=== PATIENT | male | born 1950 | race Caucasian/White ===

== ENCOUNTER 2017-11-19 13:31 | Day surgery (SDC) | payer MEDICARE, BC ==
[2017-11-19] MEDS ORDERED: DEXAMETHASONE SOD PHOS PF 10 MG/ML SOL IJ ONE (14:10)
[2017-11-19] MEDS ORDERED: BUPIVACAINE HCL 0.25% MPF 10 ML SOL INFIL ONE (14:10)
[2017-11-19 14:55] VITALS: PULSE 56; RESP 18; TEMP 98.5; O2SAT 97
[2017-11-19 15:20] VITALS: BP 154/66
== END 2017-11-19 15:33 | disposition home or self-care (01) | DRG 552 ==
LOC: SURG 13:31
PROVIDERS: ATTEND Nurse Anesthetist, Certified Registered
DX: M48.07 Spinal stenosis, lumbosacral region (principal); E10.9 Type 1 diabetes mellitus without complications; Z79.4 Long term (current) use of insulin
CPT/HCPCS: 82962; J1100

== ENCOUNTER 2017-11-26 13:37 | Emergency (ER) | payer MEDICARE, BC ==
[2017-11-26 13:53] VITALS: TEMP 98.4
[2017-11-26 14:37] LABS: BASOPHILS % (AUTO) 1 % (0-3); EOSINOPHILS % (AUTO) 2 % (0-9); HEMATOCRIT 33 % (39-53); MEAN CORPUSCULAR HGB CONC 34.7 gm/dl (32.0-36.0); MEAN CORPUSCULAR VOLUME 82 fL (80-100); MONOCYTES % (AUTO) 14.7 % (0-12); NEUTROPHILS % (AUTO) 61.7 % (37-80)
[2017-11-26 14:41] LABS: ALBUMIN 3.3 gm/dl (3.4-5.0); CALCIUM 8.1 mg/dl (8.5-10.1); POTASSIUM 3.7 mMol/L (3.5-5.1)
[2017-11-26 15:49] VITALS: BP 127/64; PULSE 77; RESP 20; O2SAT 99
== END 2017-11-26 15:30 | disposition home or self-care (01) | DRG 103 ==
LOC: ED 13:37
DX: R51 Headache (principal); L03.116 Cellulitis of left lower limb; L84 Corns and callosities; Z91.81 History of falling; R23.4 Changes in skin texture; M25.562 Pain in left knee; M54.9 Dorsalgia, unspecified; R47.81 Slurred speech; L97.519 Non-pressure chronic ulcer of other part of right foot with unspecified severity
CPT/HCPCS: 36415; 70450; 80053; 85025; 99213; 99284; A6232

== ENCOUNTER 2018-03-23 15:32 | Emergency (ER) | payer MEDICARE, BC ==
[2018-03-23] MEDS ORDERED: SODIUM CHLORIDE 0.9% 1000ML 1,000 ML IV ONE ×4 (15:45→18:23)
[2018-03-23] MEDS ORDERED: ONDANSETRON HCL 4 MG/2 ML SOL IV ONE (16:07)
[2018-03-23] MEDS ORDERED: ONDANSETRON HCL 4 MG/2 ML SOL ONE (16:08)
[2018-03-23 16:14] LABS: BASOPHILS % (AUTO) 2 % (0-3); EOSINOPHILS % (AUTO) 0 % (0-9); HEMATOCRIT 33 % (39-53); HEMOGLOBIN 11.5 gm/dl (13.5-17.7); LYMPHOCYTES % (AUTO) 6.12 % (10-50); MEAN CORPUSCULAR HEMOGLOBIN 28.7 pg (27.0-32.0); MEAN CORPUSCULAR HGB CONC 35.2 gm/dl (32.0-36.0); MEAN CORPUSCULAR VOLUME 82 fL (80-100); MONOCYTES % (AUTO) 11.9 % (0-12)
[2018-03-23 16:36] LABS: ALBUMIN 3.8 gm/dl (3.4-5.0); ALKALINE PHOSPHATASE 122 IU/L (46-116); ALT 35 IU/L (14-63); AST 51 IU/L (15-37); BILIRUBIN,TOTAL 0.4 mg/dl (0.2-1.0); CALCIUM 8.5 mg/dl (8.5-10.1); CARBON DIOXIDE 19.6 mEq/L (21-32); CHLORIDE 88 mMol/L (98-107); CREATININE 5.62 mg/dl (0.80-1.30); GLOM FILT RATE 10 mL/min (>60); GLUCOSE 203 mg/dl (74-106); POTASSIUM 6.6 mMol/L (3.5-5.1); SODIUM 121 mMol/L (136-145); TOTAL PROTEIN 7.5 gm/dl (6.4-8.2); TROP I < 0.017 ng/ml (0.000-0.056)
[2018-03-23 16:46] LABS: ALCOHOL < 0.003 gm/dl (0.000-0.08)
[2018-03-23 16:47] LABS: BLOOD UREA NITROGEN 115 mg/dl (7-18)
[2018-03-23] MEDS ORDERED: DEXTROSE 50% 1 VIAL SOL IV ONE ×3 (16:50→17:22)
[2018-03-23] MEDS ORDERED: INSULIN HUMAN REGULAR 100 U/ML SOL IV ONE (16:50)
[2018-03-23 16:54] LABS: LACTIC ACID 1.7 mMol/L (0.0-2.0)
[2018-03-23] MEDS ORDERED: SODIUM BICARBONATE 8.4%(ADULT) 1 MEQ/ML SOL IV ONE ×3 (16:54→17:08)
[2018-03-23] MEDS ORDERED: CALCIUM GLUCONATE 10% 1,000 MG in SODIUM CHLORIDE 0.9% 100 ML 100 ML IV ONE (16:54)
[2018-03-23 16:55] LABS: INR 0.96 (0.86-1.12)
[2018-03-23] MEDS ORDERED: SODIUM POLYSTYRENE SULFONATE 15 GM/60 ML SUS PO ONE (16:55)
[2018-03-23] MEDS ORDERED: CALCIUM GLUCONATE 10% 100 MG/ML SOL IV ONE (17:05)
[2018-03-23] MEDS ORDERED: INSULIN HUMAN REGULAR 100 U/ML SOL ONE (17:06)
[2018-03-23] MEDS ORDERED: SODIUM POLYSTYRENE SULFONATE 15 GM/60 ML SUS ONE (17:13)
[2018-03-23] MEDS ORDERED: BACITRACIN 500 U/GM OIN TOP ONE ×2 (17:18→17:22)
[2018-03-23] MEDS ORDERED: SODIUM CHLORIDE 0.9% FLUSH 10 ML SOL IV PRN (17:21)
[2018-03-23 17:23] LABS: APPEARANCE,URINE Cloudy; BILIRUBIN,URINE 2+ (NEGATIVE); COLOR,URINE Yellow; GLUCOSE, URINE (UA) NEGATIVE (NEGATIVE); KETONES,URINE NEGATIVE (NEGATIVE); LEUKOCYTE ESTERASE ,URINE NEGATIVE (NEGATIVE); NITRATE,URINE NEGATIVE (NEGATIVE); OCCULT BLOOD,URINE NEGATIVE (NEG-TRACE); UROBILINOGEN,URINE 0.2 (0.2-1.0 EU)
[2018-03-23 17:41] LABS: BACTERIA 2+ (< 1+); CRYSTALS NEGATIVE (0-3 AVE/HPF); EPITHELIAL CELLS NEGATIVE (SQUAMOUS); RBC,URINE 0-1 (0-3AV/HPF); WBC,URINE 0-1 (0-5AV/HPF)
[2018-03-23 17:58] LABS: AMPHETAMINES POSITIVE (NEGATIVE); BARBITUATES NEGATIVE (NEGATIVE); BENZODIAZEPINES NEGATIVE (NEGATIVE); CANNABINOL(THC) NEGATIVE (NEGATIVE); COCAINE(COC) NEGATIVE (NEGATIVE); ICTOTEST,URINE NEGATIVE (NEGATIVE); METHADONE NEGATIVE (NEGATIVE); METHAMPHETAMINES NEGATIVE (NEGATIVE); OPIATES(OP13) POSITIVE (NEGATIVE); OXYCODONE(OXY) NEGATIVE (NEGATIVE); PROPOXYPHENE(PPX) NEGATIVE (NEGATIVE); TRICYCLIC ANTIDEPRESSANTS NEGATIVE (NEGATIVE)
[2018-03-23] MEDS ORDERED: METRONIDAZOLE 500 MG (PREMIX) 500 MG/100 ML SOL IV ONE ×2 (17:59→18:42)
[2018-03-23] MEDS ORDERED: LEVOFLOXACIN 25 MG/ML 750 MG in SODIUM CHLORIDE 0.9% 250 ML 150 ML IV ONE (17:59)
[2018-03-23] MEDS ORDERED: TDAP VACCINE 0.5 ML SUS IM ONE ×2 (18:00→18:15)
[2018-03-23] MEDS ORDERED: LEVOFLOXACIN 25 MG/ML SOL IV ONE (18:01)
[2018-03-23 19:08] VITALS: BP 111/46; PULSE 73; RESP 16; TEMP 97.5; O2SAT 100
== END 2018-03-23 19:24 | disposition short-term general hospital (02) | DRG 683 ==
LOC: ED 15:32
DX: N17.9 Acute kidney failure, unspecified (principal); E87.1 Hypo-osmolality and hyponatremia; R42 Dizziness and giddiness; E87.5 Hyperkalemia; K52.9 Noninfective gastroenteritis and colitis, unspecified; S09.8XXA Other specified injuries of head, initial encounter; R55 Syncope and collapse; I95.9 Hypotension, unspecified; S51.811A Laceration without foreign body of right forearm, initial encounter; E11.9 Type 2 diabetes mellitus without complications; Z79.4 Long term (current) use of insulin; R06.02 Shortness of breath
CPT/HCPCS: 36415; 70450; 71045; 72125; 74176; 80053; 80305; 80307; 81001; 82962; 84484; 85025; 85610; 87040; 87088; 90715; 93005; 99291; J0610; J1815; J1956; J2405; A9270-GY; J3490

== ENCOUNTER 2018-06-22 07:25 | Emergency (ER) | payer MEDICARE, BC ==
[2018-06-22] MEDS ORDERED: ONDANSETRON HCL 4 MG/2 ML SOL IV ONE (07:34)
[2018-06-22] MEDS ORDERED: ONDANSETRON HCL 4 MG/2 ML SOL ONE (07:35)
[2018-06-22] MEDS: SODIUM CHLORIDE 0.9% FLUSH 10 ML SOL IV PRN ×3 (07:40→11:30)
[2018-06-22 08:31] LABS: HEMATOCRIT 37 % (39-53); HEMOGLOBIN 12.2 gm/dl (13.5-17.7); MEAN CORPUSCULAR HGB CONC 33.4 gm/dl (32.0-36.0); MEAN CORPUSCULAR VOLUME 84 fL (80-100)
[2018-06-22 08:36] LABS: ALBUMIN 3.8 gm/dl (3.4-5.0); ALCOHOL < 0.003 gm/dl (0.000-0.08); ALKALINE PHOSPHATASE 127 IU/L (46-116); ALT 41 IU/L (14-63); AST 50 IU/L (15-37); BILIRUBIN,TOTAL 0.6 mg/dl (0.2-1.0); BLOOD UREA NITROGEN 97 mg/dl (7-18); CALCIUM 7.5 mg/dl (8.5-10.1); CARBON DIOXIDE 14.4 mEq/L (21-32); CHLORIDE 89 mMol/L (98-107); CREATININE 4.54 mg/dl (0.80-1.30); GLUCOSE 258 mg/dl (74-106); POTASSIUM 4.7 mMol/L (3.5-5.1); SODIUM 127 mMol/L (136-145); TOTAL PROTEIN 7.9 gm/dl (6.4-8.2)
[2018-06-22 08:48] LABS: BAND NEUTROPHILS % (MANUAL) 0 %; BASOPHILS % (MANUAL) 0 % (0-3); EOSINOPHILS % (MANUAL) 0 % (0-9); LYMPHOCYTES % (MANUAL) 4 % (10-50); MONOCYTES % (MANUAL) 9 % (0-12); NEUTROPHILS % (MANUAL) 87 % (37-80); NORMAL RBCS PRESENT
[2018-06-22 08:51] VITALS: RESP 26
[2018-06-22 08:57] LABS: APPEARANCE,URINE Clear; BILIRUBIN,URINE 2+ (NEGATIVE); COLOR,URINE Yellow; GLUCOSE, URINE (UA) NEGATIVE (NEGATIVE); KETONES,URINE TRACE (NEGATIVE); LEUKOCYTE ESTERASE ,URINE NEGATIVE (NEGATIVE); NITRATE,URINE NEGATIVE (NEGATIVE); OCCULT BLOOD,URINE TRACE LYSED (NEG-TRACE); UROBILINOGEN,URINE 0.2 (0.2-1.0 EU)
[2018-06-22 09:13] LABS: ICTOTEST,URINE NEGATIVE (NEGATIVE)
[2018-06-22 09:14] LABS: AMPHETAMINES NEGATIVE (NEGATIVE); BACTERIA 2+ (< 1+); BARBITUATES NEGATIVE (NEGATIVE); BENZODIAZEPINES NEGATIVE (NEGATIVE); CANNABINOL(THC) NEGATIVE (NEGATIVE); COCAINE(COC) NEGATIVE (NEGATIVE); CRYSTALS NEGATIVE (0-3 AVE/HPF); EPITHELIAL CELLS NEGATIVE (SQUAMOUS); METHADONE NEGATIVE (NEGATIVE); METHAMPHETAMINES NEGATIVE (NEGATIVE); OPIATES(OPI) NEGATIVE (NEGATIVE); OXYCODONE(OXY) NEGATIVE (NEGATIVE); PROPOXYPHENE(PPX) NEGATIVE (NEGATIVE); RBC,URINE NEGATIVE (0-3AV/HPF); TRICYCLIC ANTIDEPRESSANTS NEGATIVE (NEGATIVE); WBC,URINE 0-1 (0-5AV/HPF)
[2018-06-22 09:44] LABS: LACTIC ACID 1.6 mMol/L (0.0-2.0)
[2018-06-22] MEDS ORDERED: SODIUM CHLORIDE 0.9% 1000ML 1,000 ML IV ONE (09:48)
[2018-06-22 09:56] VITALS: TEMP 97.3; O2SAT 98
[2018-06-22] MEDS ORDERED: CEFTRIAXONE 1 GM PDS ONE (10:34)
[2018-06-22] MEDS ORDERED: CEFTRIAXONE 1 GM PDS 1 GM in SODIUM CHLORIDE 0.9% 50 ML 50 ML IV ONE (10:34)
[2018-06-22] MEDS ORDERED: LORAZEPAM 2 MG/ML SOL IV ONE ×2 (10:38→11:11)
[2018-06-22] MEDS ORDERED: LORAZEPAM 2 MG/ML SOL ONE ×2 (10:39→11:16)
[2018-06-22 11:24] VITALS: BP 131/58; PULSE 93
== END 2018-06-22 11:45 | disposition short-term general hospital (02) | DRG 683 ==
LOC: SUPCPDRO 07:25 → ED 07:25
DX: N17.9 Acute kidney failure, unspecified (principal); E87.1 Hypo-osmolality and hyponatremia; R41.82 Altered mental status, unspecified; D72.829 Elevated white blood cell count, unspecified; E11.8 Type 2 diabetes mellitus with unspecified complications; Z91.14 Patient's other noncompliance with medication regimen; L97.519 Non-pressure chronic ulcer of other part of right foot with unspecified severity; Z89.422 Acquired absence of other left toe(s); G24.9 Dystonia, unspecified
CPT/HCPCS: 36415; 71046; 80053; 80305; 80307; 81001; 85007; 85027; 87040; 87088; 96365; 96366; 96374; 96375; 99070; 99284; 99291; J0696; J2060; J2405

== ENCOUNTER 2018-08-24 14:00 | Emergency (ER) | payer MEDICARE, BC ==
[2018-08-24 14:03] VITALS: O2SAT 98
[2018-08-24 15:11] VITALS: BP 178/81; PULSE 85; RESP 18; TEMP 97.7
== END 2018-08-24 16:55 | disposition home or self-care (01) | DRG 556 ==
LOC: ED 14:00
DX: M25.511 Pain in right shoulder (principal); R07.89 Other chest pain; S09.90XA Unspecified injury of head, initial encounter
CPT/HCPCS: 70450; 71046; 73030; 99282; G0390

== ENCOUNTER 2018-12-17 12:25 | Emergency (ER) | payer MEDICARE, BC ==
[2018-12-17] MEDS ORDERED: NITROGLYCERIN 0.4 MG TAB SL PRN (12:30)
[2018-12-17] MEDS ORDERED: SODIUM CHLORIDE 0.9% FLUSH 10 ML SOL IV PRN (12:30)
[2018-12-17 12:39] LABS: BASOPHILS % (AUTO) 1 % (0-3); EOSINOPHILS % (AUTO) 0 % (0-9); HEMATOCRIT 41 % (39-53); HEMOGLOBIN 12.8 gm/dl (13.5-17.7); LYMPHOCYTES % (AUTO) 5.3 % (10-50); MEAN CORPUSCULAR HEMOGLOBIN 27.6 pg (27.0-32.0); MEAN CORPUSCULAR VOLUME 89 fL (80-100); MONOCYTES % (AUTO) 13.4 % (0-12); NEUTROPHILS % (AUTO) 80.8 % (37-80)
[2018-12-17] MEDS ORDERED: SODIUM CHLORIDE 0.9% 1000ML 1,000 ML IV ONE ×2 (12:40→13:53)
[2018-12-17] MEDS ORDERED: SODIUM CHLORIDE 0.9% 1000ML 1,000 ML IV SCH (12:45)
[2018-12-17] MEDS ORDERED: DILTIAZEM 5 MG/ML SOL IV ONE ×4 (12:50→14:31)
[2018-12-17 12:54] VITALS: TEMP 97.1
[2018-12-17 13:14] LABS: LACTIC ACID 2.1 mMol/L (0.0-2.0)
[2018-12-17 13:16] LABS: ALBUMIN 3.1 gm/dl (3.4-5.0); ALKALINE PHOSPHATASE 142 IU/L (46-116); ALT 33 IU/L (14-63); AST 48 IU/L (15-37); BILIRUBIN,TOTAL 0.6 mg/dl (0.2-1.0); BLOOD UREA NITROGEN 24 mg/dl (7-18); CHLORIDE 94 mMol/L (98-107); CREATININE 1.71 mg/dl (0.80-1.30); GLUCOSE 324 mg/dl (74-106); POTASSIUM 4.9 mMol/L (3.5-5.1); SODIUM 131 mMol/L (136-145); TROP I < 0.017 ng/ml (0.000-0.056)
[2018-12-17 13:20] LABS: CREATINE KINASE 1074 U/L (39-308)
[2018-12-17] MEDS ORDERED: DILTIAZEM 5 MG/ML 125 MG in SODIUM CHLORIDE 0.9% 100 ML 100 ML IV SCH (14:00)
[2018-12-17] MEDS ORDERED: SODIUM CHLORIDE 0.9% 1000 ML SOL IV SCH ×2 (14:45→16:00)
[2018-12-17 15:08] LABS: APPEARANCE,URINE Clear; BILIRUBIN,URINE 1+ (NEGATIVE); COLOR,URINE Yellow; GLUCOSE, URINE (UA) 2+ (NEGATIVE); KETONES,URINE 4+ (NEGATIVE); LEUKOCYTE ESTERASE ,URINE NEGATIVE (NEGATIVE); NITRATE,URINE NEGATIVE (NEGATIVE); OCCULT BLOOD,URINE 2+ (NEG-TRACE); PH,URINE 5.5; UROBILINOGEN,URINE 0.2 (0.2-1.0 EU)
[2018-12-17 15:15] VITALS: RESP 20
[2018-12-17 15:24] LABS: BACTERIA TRACE (< 1+); CRYSTALS NEGATIVE (0-3 AVE/HPF); EPITHELIAL CELLS 0-2 (SQUAMOUS); ICTOTEST,URINE NEGATIVE (NEGATIVE)
[2018-12-17 16:40] VITALS: PULSE 137
[2018-12-17 16:41] VITALS: BP 125/67; O2SAT 100
== END 2018-12-17 16:07 | disposition short-term general hospital (02) | DRG 310 ==
LOC: ED 12:25
DX: I48.2 Chronic atrial fibrillation (principal); T79.6XXA Traumatic ischemia of muscle, initial encounter; E86.0 Dehydration; S82.851A Displaced trimalleolar fracture of right lower leg, initial encounter for closed fracture; W19.XXXA Unspecified fall, initial encounter; I10 Essential (primary) hypertension; E11.9 Type 2 diabetes mellitus without complications
CPT/HCPCS: 29515; 71045; 73610; 80053; 81001; 82550; 84484; 85025; 93005; 96365; 96366; 96374; 99283; 99285; J3490

== ENCOUNTER 2019-02-19 12:46 | Inpatient (IN) | payer MEDICARE, BC ==
[2019-02-19] MEDS ORDERED: ALBUTEROL NEB SOL 2.5MG/3ML 1 VIAL SOL NEB PRN (15:32)
[2019-02-19] MEDS ORDERED: SODIUM CHLORIDE 0.9% FLUSH 10 ML SOL IV PRN (15:32)
[2019-02-19] MEDS ORDERED: SODIUM CHLORIDE 0.9% 1000ML 1,000 ML IV ONE (15:32)
[2019-02-19] MEDS ORDERED: SODIUM CHLORIDE 0.9% 100 ML 100 ML IV ONE ×3 (16:30→19:54)
[2019-02-19] MEDS ORDERED: PIPERACILLIN/TAZOBACT 3.375 GM PDS IV ONE ×3 (16:30→19:54)
[2019-02-19] MEDS: AZITHROMYCIN 250 MG TAB PO SCH (17:48)
[2019-02-19] MEDS: ALBUTEROL/IPRATROPIUM 1 VIAL SOL INH SCH (17:49)
[2019-02-19] MEDS: PIPERACILLIN/TAZOBACT 3.375 GM 3.375 GM in SODIUM CHLORIDE 0.9% 100 ML 100 ML IV SCH (18:21)
[2019-02-19] MEDS ORDERED: INDOMETHACIN 25 MG PO PRN (20:02)
[2019-02-19] MEDS ORDERED: METOPROLOL TARTRATE 25 MG TAB PO SCH (21:00)
[2019-02-19] MEDS: INSULIN GLARGINE, RECOMBINAN 100 U/ML SOL SC SCH (22:26)
[2019-02-19] MEDS: PREGABALIN 100 MG CAP PO SCH (22:39)
[2019-02-20] MEDS: PIPERACILLIN/TAZOBACT 3.375 GM 3.375 GM in SODIUM CHLORIDE 0.9% 100 ML 100 ML IV SCH ×4 (00:51→18:29)
[2019-02-20] MEDS: ALBUTEROL/IPRATROPIUM 1 VIAL SOL INH SCH ×4 (00:52→18:29)
[2019-02-20] MEDS: SODIUM CHLORIDE 0.9% FLUSH 10 ML SOL IV SCH ×3 (00:55→17:17)
[2019-02-20] MEDS ORDERED: HYDRALAZINE HYDROCHLORIDE 20 MG/ML SOL IV ONE (04:25)
[2019-02-20] MEDS ORDERED: HYDRALAZINE HYDROCHLORIDE 20 MG/ML SOL IV PRN (06:06)
[2019-02-20 08:10] LABS: BASOPHILS % (AUTO) 1 % (0-3); EOSINOPHILS % (AUTO) 4 % (0-9); HEMATOCRIT 35 % (39-53); HEMOGLOBIN 11.3 gm/dl (13.5-17.7); LYMPHOCYTES % (AUTO) 9.9 % (10-50); MEAN CORPUSCULAR HEMOGLOBIN 28.1 pg (27.0-32.0); MEAN CORPUSCULAR HGB CONC 32.2 gm/dl (32.0-36.0); MEAN CORPUSCULAR VOLUME 87 fL (80-100); MONOCYTES % (AUTO) 12.8 % (0-12); NEUTROPHILS % (AUTO) 72.2 % (37-80)
[2019-02-20 08:22] LABS: CALCIUM 8.5 mg/dl (8.5-10.1); CARBON DIOXIDE 23.6 mEq/L (21-32); CREATININE 1.11 mg/dl (0.80-1.30); POTASSIUM 3.3 mMol/L (3.5-5.1)
[2019-02-20] MEDS: METOPROLOL TARTRATE 50 MG TAB PO SCH ×2 (09:42→20:09)
[2019-02-20] MEDS: POTASSIUM CHLORIDE 10 MEQ TER PO SCH ×2 (09:42→20:09)
[2019-02-20] MEDS: AZITHROMYCIN 250 MG TAB PO SCH (09:42)
[2019-02-20] MEDS: CITALOPRAM 20 MG TAB PO SCH (09:42)
[2019-02-20] MEDS: ASPIRIN 81 MG CHEWABLE CTB PO SCH (09:42)
[2019-02-20] MEDS: PREGABALIN 100 MG CAP PO SCH ×3 (09:43→20:09)
[2019-02-20] MEDS: [UNRECOGNIZED DRUG - OTHER] PO SCH (09:43)
[2019-02-20] MEDS: NOVOLOG FLEXPEN SC SCH ×3 (09:44→17:17)
[2019-02-20] MEDS: ENOXAPARIN 40 MG SOL SC SCH (09:48)
[2019-02-20] MEDS ORDERED: PIPERACILLIN/TAZOBACT 3.375 GM PDS IV ONE ×2 (13:14→17:28)
[2019-02-20] MEDS ORDERED: SODIUM CHLORIDE 0.9% 100 ML 100 ML IV ONE (13:14)
[2019-02-20] MEDS: INSULIN GLARGINE, RECOMBINAN 100 U/ML SOL SC SCH (21:35)
[2019-02-21] MEDS: PIPERACILLIN/TAZOBACT 3.375 GM 3.375 GM in SODIUM CHLORIDE 0.9% 100 ML 100 ML IV SCH ×4 (00:30→17:18)
[2019-02-21] MEDS: ALBUTEROL/IPRATROPIUM 1 VIAL SOL INH SCH ×4 (00:31→17:04)
[2019-02-21] MEDS: SODIUM CHLORIDE 0.9% FLUSH 10 ML SOL IV SCH ×4 (06:42→21:47)
[2019-02-21 07:36] LABS: CALCIUM 8.5 mg/dl (8.5-10.1); CARBON DIOXIDE 23.7 mEq/L (21-32); CREATININE 1.15 mg/dl (0.80-1.30); POTASSIUM 3.9 mMol/L (3.5-5.1)
[2019-02-21] MEDS: [UNRECOGNIZED DRUG - OTHER] PO SCH (09:13)
[2019-02-21] MEDS: METOPROLOL TARTRATE 50 MG TAB PO SCH ×2 (09:13→21:45)
[2019-02-21] MEDS: TRIAMCINOLONE 0.1% CREAM CRE TOP SCH ×2 (09:13→21:44)
[2019-02-21] MEDS: POTASSIUM CHLORIDE 10 MEQ TER PO SCH ×2 (09:13→21:45)
[2019-02-21] MEDS: CITALOPRAM 20 MG TAB PO SCH (09:13)
[2019-02-21] MEDS: ASPIRIN 81 MG CHEWABLE CTB PO SCH (09:13)
[2019-02-21] MEDS: PREGABALIN 100 MG CAP PO SCH ×3 (09:14→21:45)
[2019-02-21] MEDS: NOVOLOG FLEXPEN SC SCH ×3 (09:17→17:09)
[2019-02-21] MEDS: AMLODIPINE 5 MG TAB PO SCH (09:18)
[2019-02-21] MEDS: ENOXAPARIN 40 MG SOL SC SCH (09:19)
[2019-02-21] MEDS: AZITHROMYCIN 250 MG TAB PO SCH (09:23)
[2019-02-21] MEDS: INSULIN GLARGINE, RECOMBINAN 100 U/ML SOL SC SCH (21:45)
[2019-02-22] MEDS: PIPERACILLIN/TAZOBACT 3.375 GM 3.375 GM in SODIUM CHLORIDE 0.9% 100 ML 100 ML IV SCH ×2 (00:09→05:56)
[2019-02-22] MEDS: SODIUM CHLORIDE 0.9% FLUSH 10 ML SOL IV SCH ×3 (00:09→17:10)
[2019-02-22] MEDS: ALBUTEROL/IPRATROPIUM 1 VIAL SOL INH SCH ×4 (00:11→17:54)
[2019-02-22 07:22] LABS: CALCIUM 8.9 mg/dl (8.5-10.1); CARBON DIOXIDE 23.7 mEq/L (21-32); CREATININE 1.25 mg/dl (0.80-1.30); POTASSIUM 4.1 mMol/L (3.5-5.1)
[2019-02-22] MEDS ORDERED: LEVOFLOXACIN 500 MG TAB PO SCH (09:00)
[2019-02-22] MEDS: NOVOLOG FLEXPEN SC SCH ×3 (09:14→17:50)
[2019-02-22] MEDS: PREGABALIN 100 MG CAP PO SCH ×3 (09:15→21:16)
[2019-02-22] MEDS: [UNRECOGNIZED DRUG - OTHER] PO SCH (09:16)
[2019-02-22] MEDS: POTASSIUM CHLORIDE 10 MEQ TER PO SCH ×2 (09:17→21:16)
[2019-02-22] MEDS: AMLODIPINE 5 MG TAB PO SCH (09:18)
[2019-02-22] MEDS: CITALOPRAM 20 MG TAB PO SCH (09:18)
[2019-02-22] MEDS: ASPIRIN 81 MG CHEWABLE CTB PO SCH (09:19)
[2019-02-22] MEDS: TRIAMCINOLONE 0.1% CREAM CRE TOP SCH ×2 (09:19→21:16)
[2019-02-22] MEDS: METOPROLOL TARTRATE 50 MG TAB PO SCH ×2 (09:19→21:16)
[2019-02-22] MEDS: ENOXAPARIN 40 MG SOL SC SCH (09:23)
[2019-02-22] MEDS ORDERED: AMLODIPINE 5 MG TAB PO ONE (16:05)
[2019-02-22] MEDS: INSULIN GLARGINE, RECOMBINAN 100 U/ML SOL SC SCH (21:29)
[2019-02-23] MEDS: ALBUTEROL/IPRATROPIUM 1 VIAL SOL INH SCH ×5 (00:05→23:20)
[2019-02-23 08:53] LABS: CALCIUM 8.9 mg/dl (8.5-10.1); CARBON DIOXIDE 24.8 mEq/L (21-32); CREATININE 1.13 mg/dl (0.80-1.30); POTASSIUM 4.1 mMol/L (3.5-5.1)
[2019-02-23] MEDS ORDERED: CLONIDINE 0.1 MG TAB PO SCH (09:00)
[2019-02-23] MEDS ORDERED: LISINOPRIL 5 MG TAB PO SCH (09:00)
[2019-02-23] MEDS: PREGABALIN 100 MG CAP PO SCH ×3 (09:17→21:03)
[2019-02-23] MEDS: [UNRECOGNIZED DRUG - OTHER] PO SCH (09:19)
[2019-02-23] MEDS: TRIAMCINOLONE 0.1% CREAM CRE TOP SCH ×2 (09:21→21:02)
[2019-02-23] MEDS: ASPIRIN 81 MG CHEWABLE CTB PO SCH (09:21)
[2019-02-23] MEDS: ENOXAPARIN 40 MG SOL SC SCH (09:21)
[2019-02-23] MEDS: METOPROLOL TARTRATE 50 MG TAB PO SCH ×2 (09:21→21:02)
[2019-02-23] MEDS: AMLODIPINE 5 MG TAB PO SCH (09:22)
[2019-02-23] MEDS: CITALOPRAM 20 MG TAB PO SCH (09:22)
[2019-02-23] MEDS: POTASSIUM CHLORIDE 10 MEQ TER PO SCH ×2 (09:22→21:02)
[2019-02-23] MEDS: AZITHROMYCIN 250 MG TAB PO SCH (09:23)
[2019-02-23] MEDS: NOVOLOG FLEXPEN SC SCH ×3 (09:23→18:17)
[2019-02-23] MEDS: CEFDINIR 300 MG CAP PO SCH ×2 (10:36→21:08)
[2019-02-23] MEDS ORDERED: HYDRALAZINE HYDROCHLORIDE 10 MG TAB PO ONE (15:05)
[2019-02-23] MEDS: CLONIDINE 0.1 MG TAB PO SCH (21:08)
[2019-02-23] MEDS: INSULIN GLARGINE, RECOMBINAN 100 U/ML SOL SC SCH (21:09)
[2019-02-24] MEDS: ALBUTEROL/IPRATROPIUM 1 VIAL SOL INH SCH ×2 (06:14→11:41)
[2019-02-24] MEDS: METOPROLOL TARTRATE 50 MG TAB PO SCH (08:00)
[2019-02-24] MEDS: [UNRECOGNIZED DRUG - OTHER] PO SCH (08:00)
[2019-02-24] MEDS: ASPIRIN 81 MG CHEWABLE CTB PO SCH (08:02)
[2019-02-24] MEDS: CLONIDINE 0.1 MG TAB PO SCH (08:02)
[2019-02-24] MEDS: CITALOPRAM 20 MG TAB PO SCH (08:02)
[2019-02-24] MEDS: POTASSIUM CHLORIDE 10 MEQ TER PO SCH (08:03)
[2019-02-24] MEDS: TRIAMCINOLONE 0.1% CREAM CRE TOP SCH (08:03)
[2019-02-24] MEDS: AMLODIPINE 5 MG TAB PO SCH (08:04)
[2019-02-24] MEDS: AZITHROMYCIN 250 MG TAB PO SCH (08:05)
[2019-02-24] MEDS: PREGABALIN 100 MG CAP PO SCH (08:05)
[2019-02-24] MEDS: NOVOLOG FLEXPEN SC SCH ×2 (08:07→11:52)
[2019-02-24] MEDS: CEFDINIR 300 MG CAP PO SCH (08:07)
[2019-02-24] MEDS: ENOXAPARIN 40 MG SOL SC SCH (08:11)
[2019-02-24] MEDS ORDERED: CLONIDINE 0.1 MG TAB PO ONE (08:36)
[2019-02-24 08:39] LABS: BASOPHILS % (AUTO) 2 % (0-3); EOSINOPHILS % (AUTO) 7 % (0-9); HEMATOCRIT 38 % (39-53); HEMOGLOBIN 11.9 gm/dl (13.5-17.7); LYMPHOCYTES % (AUTO) 15.5 % (10-50); MEAN CORPUSCULAR HEMOGLOBIN 27.5 pg (27.0-32.0); MEAN CORPUSCULAR HGB CONC 31.6 gm/dl (32.0-36.0); MEAN CORPUSCULAR VOLUME 87 fL (80-100); MONOCYTES % (AUTO) 11.1 % (0-12); NEUTROPHILS % (AUTO) 64.5 % (37-80)
[2019-02-24 08:57] LABS: CALCIUM 8.7 mg/dl (8.5-10.1); CARBON DIOXIDE 24.9 mEq/L (21-32); CREATININE 1.22 mg/dl (0.80-1.30)
[2019-02-24 10:16] VITALS: BP 113/67; TEMP 98.3
[2019-02-24 11:43] VITALS: PULSE 64; O2SAT 98
[2019-02-24 11:52] VITALS: RESP 20
[2019-02-24] MEDS ORDERED: CLONIDINE 0.1 MG TAB PO SCH (21:00)
== END 2019-02-24 14:10 | disposition home or self-care (01) | DRG 195 ==
LOC: RAD 12:46 → ACUTE CARE 15:15
PROVIDERS: ADMIT Family Medicine; ATTEND Family Medicine
PROC: F01L0FZ Muscle Performance Assessment of Musculoskeletal System - Lower Back / Lower Extremity using Assistive, Adaptive, Supportive or Protective Equipment (ICD-10-PCS; principal; 2019-02-20)
PROC: F01L5YZ Range of Motion and Joint Integrity Assessment of Musculoskeletal System - Lower Back / Lower Extremity using Other Equipment (ICD-10-PCS; 2019-02-20)
PROC: F01K5ZZ Range of Motion and Joint Integrity Assessment of Musculoskeletal System - Upper Back / Upper Extremity (ICD-10-PCS; 2019-02-20)
DX: J18.1 Lobar pneumonia, unspecified organism (principal); R06.02 Shortness of breath; J94.8 Other specified pleural conditions; J98.11 Atelectasis; R07.9 Chest pain, unspecified; I25.10 Atherosclerotic heart disease of native coronary artery without angina pectoris; E11.42 Type 2 diabetes mellitus with diabetic polyneuropathy; Z79.4 Long term (current) use of insulin; I10 Essential (primary) hypertension; E87.6 Hypokalemia; I87.301 Chronic venous hypertension (idiopathic) without complications of right lower extremity
CPT/HCPCS: 36415; 71275; 80048; 82962; 85025; 87040; 94150; 94640; 94664; 94762; 99070; J0360; J1650; J1817; J2543; J7613; Q9967; A9270-GY; J1815

== ENCOUNTER 2019-04-21 14:19 | Inpatient (IN) | payer MEDICARE, BC ==
[2019-04-21] MEDS ORDERED: MORPHINE SULFATE 10 MG/ML SOL IV PRN ×2 (14:44)
[2019-04-21] MEDS ORDERED: NITROGLYCERIN 0.4 MG TAB SL PRN (14:44)
[2019-04-21] MEDS ORDERED: ALUMINUM/MAGNESIUM 30 ML SUS PO PRN (14:44)
[2019-04-21] MEDS ORDERED: HYDRALAZINE HYDROCHLORIDE 20 MG/ML SOL IV ONE ×2 (14:49→18:17)
[2019-04-21 16:31] LABS: INR 1.05 (0.87-1.13)
[2019-04-21] MEDS: SODIUM CHLORIDE 0.9% FLUSH 10 ML SOL IV SCH ×3 (16:37→22:21)
[2019-04-21] MEDS ORDERED: SODIUM CHLORIDE 0.9% 50 ML 25 ML IV PRN (17:53)
[2019-04-21] MEDS ORDERED: HYDRALAZINE HYDROCHLORIDE 10 MG TAB PO ONE (18:08)
[2019-04-21] MEDS ORDERED: FUROSEMIDE 40 MG SOL IV ONE (18:14)
[2019-04-21] MEDS ORDERED: ONDANSETRON 4 MG ODT ONE (18:16)
[2019-04-21] MEDS: ONDANSETRON 4 MG ODT BU PRN (18:18)
[2019-04-21] MEDS: CLONIDINE 0.1 MG TAB PO SCH ×2 (18:21→20:17)
[2019-04-21] MEDS: NOVOLOG FLEXPEN SC SCH (18:49)
[2019-04-21] MEDS ORDERED: CEFTRIAXONE 1 GM PDS ONE (18:53)
[2019-04-21] MEDS ORDERED: SODIUM CHLORIDE 0.9% 50 ML 50 ML IV ONE (18:53)
[2019-04-21] MEDS ORDERED: ENOXAPARIN 40 MG SOL SC SCH (19:00)
[2019-04-21] MEDS: CEFTRIAXONE 1 GM PDS 1 GM in SODIUM CHLORIDE 0.9% 50 ML 50 ML IV SCH (19:00)
[2019-04-21] MEDS: ENOXAPARIN 40 MG SOL SC SCH (19:06)
[2019-04-21] MEDS: METOPROLOL TARTRATE 50 MG TAB PO SCH (20:18)
[2019-04-21] MEDS: AZITHROMYCIN 250 MG TAB PO SCH (20:18)
[2019-04-21] MEDS: ACETAMINOPHEN 325 MG PO PRN (20:18)
[2019-04-21] MEDS: INSULIN GLARGINE, RECOMBINAN 100 U/ML SOL SC SCH (20:18)
[2019-04-21] MEDS ORDERED: FUROSEMIDE 40 MG SOL IV SCH (21:00)
[2019-04-21] MEDS: INDOMETHACIN 25 MG PO SCH (22:10)
[2019-04-22] MEDS ORDERED: CEFTRIAXONE 1 GM PDS ONE ×2 (06:20→18:20)
[2019-04-22] MEDS ORDERED: SODIUM CHLORIDE 0.9% 50 ML 50 ML IV ONE ×2 (06:20→18:22)
[2019-04-22] MEDS: CEFTRIAXONE 1 GM PDS 1 GM in SODIUM CHLORIDE 0.9% 50 ML 50 ML IV SCH ×2 (06:31→18:25)
[2019-04-22] MEDS: SODIUM CHLORIDE 0.9% FLUSH 10 ML SOL IV SCH ×4 (06:31→23:09)
[2019-04-22] MEDS: ONDANSETRON 4 MG ODT BU PRN (06:40)
[2019-04-22] MEDS: ACETAMINOPHEN 325 MG PO PRN ×2 (06:40→09:44)
[2019-04-22 08:02] LABS: BLOOD UREA NITROGEN 15 mg/dl (7-18); CALCIUM 8.9 mg/dl (8.5-10.1); CARBON DIOXIDE 29.6 mEq/L (21-32); CHLORIDE 103 mMol/L (98-107); CREATININE 1.23 mg/dl (0.80-1.30); GLUCOSE 104 mg/dl (74-106); TROP I < 0.017 ng/ml (0.000-0.056)
[2019-04-22 08:14] LABS: BASOPHILS % (AUTO) 1 % (0-3); EOSINOPHILS % (AUTO) 3 % (0-9); HEMATOCRIT 40 % (39-53); HEMOGLOBIN 12.3 gm/dl (13.5-17.7); LYMPHOCYTES % (AUTO) 16.2 % (10-50); MEAN CORPUSCULAR HEMOGLOBIN 28.4 pg (27.0-32.0); MEAN CORPUSCULAR HGB CONC 30.9 gm/dl (32.0-36.0); MEAN CORPUSCULAR VOLUME 92 fL (80-100); MONOCYTES % (AUTO) 9.7 % (0-12); NEUTROPHILS % (AUTO) 70.3 % (37-80)
[2019-04-22] MEDS ORDERED: [UNRECOGNIZED DRUG - OTHER] PO SCH (09:00)
[2019-04-22] MEDS ORDERED: ENOXAPARIN 40 MG SOL SC SCH (09:00)
[2019-04-22] MEDS: INDOMETHACIN 25 MG PO SCH ×3 (09:15→21:33)
[2019-04-22] MEDS: NOVOLOG FLEXPEN SC SCH ×3 (09:25→18:19)
[2019-04-22] MEDS: METOPROLOL TARTRATE 50 MG TAB PO SCH ×2 (09:40→21:33)
[2019-04-22] MEDS: LOSARTAN POTASSIUM 50 MG TAB PO SCH (09:43)
[2019-04-22] MEDS: CLONIDINE 0.1 MG TAB PO SCH ×2 (09:43→21:32)
[2019-04-22] MEDS: ASPIRIN EC 81 MG PO SCH (09:43)
[2019-04-22] MEDS: MULTIVITAMIN2 1 EA TAB PO SCH (09:44)
[2019-04-22] MEDS: AMLODIPINE 5 MG TAB PO SCH (09:44)
[2019-04-22] MEDS: CITALOPRAM 20 MG TAB PO SCH (09:44)
[2019-04-22] MEDS ORDERED: SOLUMEDROL 125 MG/2 ML 125 MG/2 ML PDS IV SCH (14:15)
[2019-04-22] MEDS ORDERED: ALBUTEROL NEB SOL 2.5MG/3ML 1 VIAL SOL NEB PRN (20:50)
[2019-04-22] MEDS: SOLUMEDROL 125 MG/2 ML 125 MG/2 ML PDS IV SCH (21:28)
[2019-04-22] MEDS: ENOXAPARIN 40 MG SOL SC SCH (21:34)
[2019-04-22] MEDS: AZITHROMYCIN 250 MG TAB PO SCH (21:34)
[2019-04-22] MEDS: INSULIN GLARGINE, RECOMBINAN 100 U/ML SOL SC SCH (21:35)
[2019-04-23] MEDS: SOLUMEDROL 125 MG/2 ML 125 MG/2 ML PDS IV SCH ×3 (01:36→18:17)
[2019-04-23] MEDS ORDERED: CEFTRIAXONE 1 GM PDS ONE (05:59)
[2019-04-23] MEDS ORDERED: SODIUM CHLORIDE 0.9% 50 ML 50 ML IV ONE (06:00)
[2019-04-23] MEDS: CEFTRIAXONE 1 GM PDS 1 GM in SODIUM CHLORIDE 0.9% 50 ML 50 ML IV SCH ×2 (06:13→18:17)
[2019-04-23] MEDS: SODIUM CHLORIDE 0.9% FLUSH 10 ML SOL IV SCH ×2 (06:14→16:57)
[2019-04-23] MEDS: NOVOLOG FLEXPEN SC SCH ×6 (08:11→21:04)
[2019-04-23] MEDS: MULTIVITAMIN2 1 EA TAB PO SCH (08:25)
[2019-04-23] MEDS: INDOMETHACIN 25 MG PO SCH ×3 (08:25→20:10)
[2019-04-23] MEDS: LOSARTAN POTASSIUM 50 MG TAB PO SCH (08:26)
[2019-04-23] MEDS: ASPIRIN EC 81 MG PO SCH (08:26)
[2019-04-23] MEDS: METOPROLOL TARTRATE 50 MG TAB PO SCH ×2 (08:26→20:11)
[2019-04-23] MEDS: CITALOPRAM 20 MG TAB PO SCH (08:26)
[2019-04-23] MEDS: AMLODIPINE 5 MG TAB PO SCH (08:27)
[2019-04-23] MEDS: CLONIDINE 0.1 MG TAB PO SCH ×2 (08:27→20:10)
[2019-04-23] MEDS: FUROSEMIDE 40 MG TAB PO SCH (08:36)
[2019-04-23 08:51] LABS: BASOPHILS % (AUTO) 0 % (0-3); EOSINOPHILS % (AUTO) 0 % (0-9); HEMATOCRIT 37 % (39-53); HEMOGLOBIN 12.1 gm/dl (13.5-17.7); LYMPHOCYTES % (AUTO) 4.1 % (10-50); MEAN CORPUSCULAR HEMOGLOBIN 28.8 pg (27.0-32.0); MEAN CORPUSCULAR HGB CONC 32.2 gm/dl (32.0-36.0); MEAN CORPUSCULAR VOLUME 90 fL (80-100); MONOCYTES % (AUTO) 0.5 % (0-12); NEUTROPHILS % (AUTO) 94.9 % (37-80)
[2019-04-23 08:55] LABS: CALCIUM 8.8 mg/dl (8.5-10.1); CARBON DIOXIDE 25.5 mEq/L (21-32); CREATININE 1.37 mg/dl (0.80-1.30)
[2019-04-23] MEDS: PREDNISONE 20 MG TAB PO SCH (11:42)
[2019-04-23] MEDS: ENOXAPARIN 40 MG SOL SC SCH (19:12)
[2019-04-23] MEDS: CEFDINIR 300 MG CAP PO SCH (20:11)
[2019-04-23] MEDS: AZITHROMYCIN 250 MG TAB PO SCH (20:12)
[2019-04-23] MEDS: INSULIN GLARGINE, RECOMBINAN 100 U/ML SOL SC SCH (21:06)
[2019-04-24] MEDS: SODIUM CHLORIDE 0.9% FLUSH 10 ML SOL IV SCH ×3 (06:40→14:54)
[2019-04-24 08:11] LABS: BASOPHILS % (AUTO) 1 % (0-3); EOSINOPHILS % (AUTO) 0 % (0-9); HEMATOCRIT 37 % (39-53); HEMOGLOBIN 11.5 gm/dl (13.5-17.7); LYMPHOCYTES % (AUTO) 5.8 % (10-50); MEAN CORPUSCULAR HEMOGLOBIN 28.4 pg (27.0-32.0); MEAN CORPUSCULAR HGB CONC 31.4 gm/dl (32.0-36.0); MEAN CORPUSCULAR VOLUME 90 fL (80-100); MONOCYTES % (AUTO) 6.1 % (0-12); NEUTROPHILS % (AUTO) 87.6 % (37-80)
[2019-04-24 08:25] LABS: ALBUMIN 3.2 gm/dl (3.4-5.0); BILIRUBIN,TOTAL 0.3 mg/dl (0.2-1.0); CALCIUM 8.4 mg/dl (8.5-10.1); CREATININE 1.33 mg/dl (0.80-1.30); TOTAL PROTEIN 7.2 gm/dl (6.4-8.2)
[2019-04-24] MEDS: NOVOLOG FLEXPEN SC SCH ×7 (08:39→21:13)
[2019-04-24] MEDS: CLONIDINE 0.1 MG TAB PO SCH ×3 (08:41→20:12)
[2019-04-24] MEDS: CITALOPRAM 20 MG TAB PO SCH (08:42)
[2019-04-24] MEDS: ASPIRIN EC 81 MG PO SCH (08:42)
[2019-04-24] MEDS: FUROSEMIDE 40 MG TAB PO SCH (08:43)
[2019-04-24] MEDS: METOPROLOL TARTRATE 50 MG TAB PO SCH ×2 (08:43→20:08)
[2019-04-24] MEDS: MULTIVITAMIN2 1 EA TAB PO SCH (08:43)
[2019-04-24] MEDS: PREDNISONE 20 MG TAB PO SCH (08:44)
[2019-04-24] MEDS: AMLODIPINE 5 MG TAB PO SCH (08:44)
[2019-04-24] MEDS: CEFDINIR 300 MG CAP PO SCH ×2 (08:45→20:05)
[2019-04-24] MEDS: LOSARTAN POTASSIUM 50 MG TAB PO SCH (08:45)
[2019-04-24] MEDS: INDOMETHACIN 25 MG PO SCH ×3 (08:45→20:05)
[2019-04-24] MEDS ORDERED: PREDNISONE 20 MG TAB PO SCH (09:00)
[2019-04-24] MEDS ORDERED: LOSARTAN POTASSIUM 50 MG TAB PO SCH (10:12)
[2019-04-24] MEDS ORDERED: LOSARTAN POTASSIUM 50 MG TAB PO ONE (10:27)
[2019-04-24] MEDS: ENOXAPARIN 40 MG SOL SC SCH (19:56)
[2019-04-24] MEDS: AZITHROMYCIN 250 MG TAB PO SCH (20:09)
[2019-04-24] MEDS ORDERED: PREGABALIN PO SCH (21:00)
[2019-04-24] MEDS: INSULIN GLARGINE, RECOMBINAN 100 U/ML SOL SC SCH (21:12)
[2019-04-25] MEDS: SODIUM CHLORIDE 0.9% FLUSH 10 ML SOL IV SCH ×3 (02:27→16:32)
[2019-04-25 07:32] LABS: BASOPHILS % (AUTO) 0 % (0-3); EOSINOPHILS % (AUTO) 0 % (0-9); HEMATOCRIT 36 % (39-53); HEMOGLOBIN 11.5 gm/dl (13.5-17.7); LYMPHOCYTES % (AUTO) 13.7 % (10-50); MEAN CORPUSCULAR HEMOGLOBIN 28.9 pg (27.0-32.0); MEAN CORPUSCULAR HGB CONC 32.2 gm/dl (32.0-36.0); MEAN CORPUSCULAR VOLUME 90 fL (80-100); MONOCYTES % (AUTO) 8.3 % (0-12); NEUTROPHILS % (AUTO) 77.5 % (37-80)
[2019-04-25 07:41] LABS: BILIRUBIN,TOTAL 0.3 mg/dl (0.2-1.0); CALCIUM 8.3 mg/dl (8.5-10.1); CARBON DIOXIDE 26.1 mEq/L (21-32); CREATININE 1.17 mg/dl (0.80-1.30); TOTAL PROTEIN 6.8 gm/dl (6.4-8.2)
[2019-04-25] MEDS: NOVOLOG FLEXPEN SC SCH ×4 (08:40→12:05)
[2019-04-25] MEDS: CEFDINIR 300 MG CAP PO SCH (08:41)
[2019-04-25] MEDS: FUROSEMIDE 40 MG TAB PO SCH (08:42)
[2019-04-25] MEDS: CLONIDINE 0.1 MG TAB PO SCH (08:42)
[2019-04-25] MEDS: MULTIVITAMIN2 1 EA TAB PO SCH (08:43)
[2019-04-25] MEDS: CITALOPRAM 20 MG TAB PO SCH (08:43)
[2019-04-25] MEDS: PREDNISONE 20 MG TAB PO SCH (08:44)
[2019-04-25] MEDS: METOPROLOL TARTRATE 50 MG TAB PO SCH (08:45)
[2019-04-25] MEDS: AMLODIPINE 5 MG TAB PO SCH (08:46)
[2019-04-25] MEDS: ASPIRIN EC 81 MG PO SCH (08:46)
[2019-04-25] MEDS ORDERED: PREGABALIN 100 MG PO SCH (09:00)
[2019-04-25] MEDS: INDOMETHACIN 25 MG PO SCH ×2 (12:05→14:27)
[2019-04-25 16:21] VITALS: BP 181/83; PULSE 72; RESP 16; TEMP 96.9; O2SAT 97
== END 2019-04-25 17:15 | disposition home or self-care (01) | DRG 195 ==
LOC: ACUTE CARE 14:22
PROVIDERS: ADMIT Family Medicine; ATTEND Family Medicine
DX: J18.1 Lobar pneumonia, unspecified organism (principal); L97.522 Non-pressure chronic ulcer of other part of left foot with fat layer exposed; E11.22 Type 2 diabetes mellitus with diabetic chronic kidney disease; Z79.4 Long term (current) use of insulin; R60.9 Edema, unspecified; I87.2 Venous insufficiency (chronic) (peripheral); R06.02 Shortness of breath; M25.519 Pain in unspecified shoulder; B95.62 Methicillin resistant Staphylococcus aureus infection as the cause of diseases classified elsewhere; R07.9 Chest pain, unspecified; L84 Corns and callosities; R23.4 Changes in skin texture; L98.499 Non-pressure chronic ulcer of skin of other sites with unspecified severity; I12.9 Hypertensive chronic kidney disease with stage 1 through stage 4 chronic kidney disease, or unspecified chronic kidney disease; N18.9 Chronic kidney disease, unspecified
CPT/HCPCS: 36415; 71275; 73030; 80048; 80053; 82962; 84484; 85025; 85610; 93005; 93012; 93306; 94150; 94664; 94762; 97597; 99231; 99239; J0360; J0696; J1650; J1817; J1940; J2930; J7613; Q9957; Q9967; A6232; A6446; A9270; A9270-GY; J1815

== ENCOUNTER 2019-05-24 06:00 | Inpatient (IN) | payer MEDICARE, BC | END 2019-05-28 10:05 | disposition home or self-care (01) | LOC: ED 06:00 → ACUTE CARE 10:30 ==